=== PATIENT | female | born 1985 | race African-American/Black ===

== ENCOUNTER 2020-09-08 08:39 | Emergency (ER) | payer MEDICAID, SELFPAY ==
--- NOTE | 2020-09-08 08:58 | ED.GENADULT ---
HPI - General Adult General Chief complaint: General Medical Stated complaint: lump in throat Time Seen by Provider: 09/08/20 08:56 Source: patient Mode of arrival: ambulatory Limitations: no limitations History of Present Illness MD complaint: sore throat Onset (ago): day(s) (since Sunday) Location: head Radiation: non-radiation Severity: mild Quality: aching Pain Consistency: constant Relieving factors: none Exacerbating factors: none Associated symptoms: other (sore throat, swollen glands, sinus congestion) Treatments prior to arrival: none Related Data Previous Rx's Medication Instructions Recorded azithromycin 250 mg PO DAILY 4 Days #4 tab 09/08/20 Allergies Allergy/AdvReac Type Severity Reaction Status Date / Time amoxicillin [AMOXICILLIN] Allergy Severe ANAPHYLAXIS, Unverified 07/08/20 17:12 hives Penicillins [PENICILLINS] Allergy Severe ANAPHYLAXIS Unverified 07/08/20 17:12 penicillin V Allergy Unknown hives Verified 11/14/17 00:00 Review of Systems Review of Systems: Constitutional : no Fever, no Chills, no fatigue, no Malaise ENT/Mouth : positive sore throat, positive sinus pressure Eyes: No Discharge Cardiovascular : No Chest Pain, No SOB Respiratory : No Cough, No Sputum Gastrointestinal : No Nausea, No Vomiting, No Diarrhea Genitourinary : No Dysuria, No Urinary Frequency Musculoskeletal : no Myalgia Skin : No rash Neuro : pos Headache PMFSH Past Medical History Attestation statement: The following information was validated with the patient. Medical History Asthma Social History Social History (Updated 09/08/20 @ 08:58 by Vira Gibbs DO) Smoking Status: Current some day smoker Physical Exam Vital Signs: Appearance: Alert. Oriented X3. No acute distress. Eyes: Pupils equal, round and reactive to light. ENT: Pharynx mild erythema/no patches, isolated cervical anterior small LAD, bilateral frontal and maxillary sinus ttp Neck: Normal inspection. Neck supple. CVS: Normal heart rate and rhythm. Pulses normal. Respiratory: No respiratory distress. Breath sounds normal. Abdomen: Soft and nontender. Skin: Skin warm and dry. Normal skin color. Normal skin turgor. Extremities: No lower extremity edema. No calf ttp Neuro: Oriented X 3. No motor deficit. No sensory deficit. Medical Decision Making MDM Narrative Medical decision making narrative: 34 yo female with sore throat and sinus pressure suspect sinusitis - strep test and COVID/flu ordered, not toxic, no resp distress, will start on azithromycin for sinusitis Discharge Plan Discharge Clinical Impression: Sinusitis Qualifiers: Sinusitis location: frontal Chronicity: acute Recurrence: not specified as recurrent Qualified Code(s): J01.10 - Acute frontal sinusitis, unspecified Patient Disposition: Home, Self-Care Instructions: Pharyngitis (ED), Sinusitis (ED) Additional Instructions: return to ED for any worsening symptoms or concerns Prescriptions: New azithromycin 250 mg tablet 250 mg PO DAILY 4 Days Qty: 4 RF: 0 Referrals: John Liu MD [Primary Care Provider] - 2 days (if not better ) Stand Alone Forms: Work/School Release
[2020-09-08 09:01] VITALS: BP 147/101; PULSE 100; RESP 16; TEMP 36.7; O2SAT 96; BMI 23.6
[2020-09-08] MEDS: Azithromycin 500 MG TABLET PO (09:10)
[2020-09-08 10:42] LABS: Influenza A PCR NEGATIVE (Negative); Influenza B PCR NEGATIVE (Negative); Resp Syncy Virus RNA Qual PCR NEGATIVE (Negative); SARS COV2 PCR INHOUSE NEGATIVE (Negative)
== END 2020-09-08 10:09 | disposition home or self-care (01) ==
LOC: HO.ED 09:08
PROVIDERS: Emergency Provider Emergency Medicine; PCP Internal Medicine
DX: J01.10 Acute frontal sinusitis, unspecified (principal); R22.1 Localized swelling, mass and lump, neck; Z20.828 Contact with and (suspected) exposure to other viral communicable diseases
CPT/HCPCS: 0241U; 87071; 87880; 99283

== ENCOUNTER 2021-01-06 13:41 | Outpatient (REF) | payer MEDICAID, SELFPAY ==
--- NOTE | ~2021-01-06 | US_ITS ---
EXAMINATION: US DIAGNOSTIC ULTRASOUND BREAST, LEFT CLINICAL INFORMATION: Follow-up probable benign multiseptated cysts upper outer left breast. Age 35. COMPARISON: Mammography and left breast ultrasound 12/23/2019, left breast ultrasound 06/29/2020.. TECHNIQUE: Ultrasound left breast is targeted to the upper outer quadrant. Grayscale imaging and color Doppler are performed without and with harmonics. FINDINGS: There is an oval cyst 2:00 position 4 cm from nipple with stable internal branching avascular septation. Overall size is approximately 1.1 x 0.4 cm similar to prior exams. There is an adjacent similar appearing multiseptated cyst measuring approximately 1.0 x 0.5 cm. There is no interval solid component or color flow. No new cystic or solid mass. No skin thickening or edema tracking in soft tissue planes. Results are provided to the patient at time of visit by the account development specialist. Management plan is for follow-up targeted left breast ultrasound in one year to conclude long-term surveillance. US/US breast LT limited IMPRESSION: The avascular multiseptated cysts 2:00 position are stable. ASSESSMENT: BI-RADS 3: Probably Benign RECOMMENDATION: Targeted left breast ultrasound in 12 months to conclude long-term surveillance. This patient's information was entered into a reminder system with a target due date for their next breast imaging.
== END 2021-01-06 13:42 | disposition home or self-care (01) ==
LOC: HO.MAMMO 13:41
PROVIDERS: Visit Provider Internal Medicine
DX: N60.02 Solitary cyst of left breast (principal)
CPT/HCPCS: 76642

== ENCOUNTER 2022-01-09 12:41 | Outpatient (REF) | payer MEDICAID, SELFPAY ==
--- NOTE | ~2022-01-09 | US_ITS ---
EXAMINATION: US DIAGNOSTIC ULTRASOUND BREAST, LEFT CLINICAL INFORMATION: Two complex cysts left breast. COMPARISON: 01/06/2021 and studies dating back to 12/23/2019. TECHNIQUE: Ultrasound of the breast is performed with real-time wing scale imaging and color Doppler. FINDINGS: Targeted left breast ultrasound performed. At the 2 o'clock position 4 cm from nipple, there is again noted to be a stable mildly lobular heterogeneous hypoechoic lesion with increased through sound transmission and no internal vascularity measuring approximately 1.1 x 0.4 x 0.9 cm in size. The lesion is wider than it is tall. The second adjacent complex cyst or cluster of cysts at the 2 o'clock position 4 cm from the nipple, appears less bulky and similar in size. It is wider than it is tall without internal vascularity. There is some increased through sound transmission. Other scattered cysts are noted. Results are discussed with the patient at time of visit. US/US breast LT limited IMPRESSION: Essentially stable left breast cysts. ASSESSMENT: BI-RADS 2: Benign. RECOMMENDATION: Clinical followup.
== END 2022-01-09 12:42 | disposition home or self-care (01) ==
LOC: HO.MAMMO 12:41
PROVIDERS: PCP Internal Medicine; Visit Provider Internal Medicine
DX: N60.02 Solitary cyst of left breast (principal)
CPT/HCPCS: 76642

== ENCOUNTER 2022-05-29 13:45 | Outpatient (REF) | payer MEDICAID, SELFPAY ==
[2022-05-30 07:48] LABS: HBS Num1 103.79 mIU/mL (0-7.99); ~Hepatitis B Surface Antibody REACTIVE (Nonreactive)
[2022-05-31 01:37] LABS: Rubella IgG Antibody 3.75 Index; Rubeola IgG (Measles) >300.00 AU/mL
[2022-06-01 00:02] LABS: TS Negative Control Passed; TS Panel A 0; TS Panel B 1; TS Positive Control Passed; TSpotTB Negative (Negative)
== END 2022-05-29 13:46 | disposition home or self-care (01) ==
LOC: HO.LAB 13:45
PROVIDERS: PCP Internal Medicine; Visit Provider Internal Medicine
DX: Z01.84 Encounter for antibody response examination (principal); Z11.1 Encounter for screening for respiratory tuberculosis
CPT/HCPCS: 36415; 86481; 86706; 86735; 86762; 86765; 86787

== ENCOUNTER 2024-04-17 15:49 | Emergency (ER) | payer MEDICAID, SELFPAY ==
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
[2024-04-17 16:36] VITALS: BP 124/78; PULSE 69; RESP 16; TEMP 36.6; O2SAT 100; BMI 25.5
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
[2024-04-17 20:09] VITALS: BP 138/89; PULSE 75; RESP 16; TEMP 36.5; O2SAT 98
[2024-04-17 21:07] VITALS: BP 138/89; PULSE 75; RESP 16; TEMP 36.5; O2SAT 98
== END 2024-04-17 21:08 | disposition home or self-care (01) ==
PROVIDERS: Emergency Provider Emergency Medicine; PCP Internal Medicine
DX: Z04.1 Encounter for examination and observation following transport accident (principal); M25.512 Pain in left shoulder; M25.522 Pain in left elbow; M62.838 Other muscle spasm
CPT/HCPCS: 73030; 73080; 99283

== ENCOUNTER 2024-05-27 20:23 | Inpatient (IN) | payer MEDICAID, OTHER, SELFPAY ==
--- NOTE | 2024-05-27 | ECG_ITS ---
Test Reason : OVERDOSE Blood Pressure : / mmHG Vent. Rate : 058 BPM Atrial Rate : 058 BPM P-R Int : 152 ms QRS Dur : 076 ms QT Int : 456 ms P-R-T Axes : 056 053 034 degrees QTc Int : 447 ms Sinus bradycardia Otherwise normal ECG No previous ECGs available Referred By: Emanuel Rankin Electronically Signed By:NIRANJAN HARDING MD
[2024-05-27 20:41] VITALS: BP 157/84; BP 174/107; PULSE 72; PULSE 80; RESP 18; TEMP -17.7; TEMP 0; O2SAT 100; O2SAT 94; BMI 46.7
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
[2024-05-27] MEDS: 0.9 % Sodium Chloride 1,000 ML 999 ML IV (21:15)
[2024-05-27] MEDS: Activated charcoaL 50 GM/240 ML ORAL.SUSP PO (21:15)
[2024-05-27] MEDS: ondansetron HCL 4 MG/2 ML VIAL IVPUSH (21:15)
[2024-05-27 21:17] LABS: MANUAL DIFF FLAG NO
[2024-05-27 21:21] LABS: Basophils Absolute Auto 0.1 X10*3/uL (0.0-0.2); Basophils Percent Auto 0.5 % (0-2); Eosinophils Absolute Auto 0.1 X10*3/uL (0.0-0.4); Eosinophils Percent Auto 0.5 % (0-4); Hematocrit 37.7 % (37.0-47.0); Hemoglobin 13.4 g/dl (12.0-16.0); Imm Gran Abs Auto 0.03 X10*3/uL (0.00-0.03); Imm Gran Pct Auto 0.2 % (0.0-0.4); Lymphocytes Percent Auto 16.1 % (20-40); Mean Corpuscular HGB Conc 35.5 g/dl (31.0-35.0); Mean Corpuscular Hemoglobin 33.3 pg (27.0-33.0); Mean Corpuscular Volume 93.8 fL (80.0-98.0); Mean Platelet Volume 9.3 fL (9.4-12.3); Monocytes Absolute Auto 0.8 X10*3/uL (0.1-1.2); Monocytes Percent Auto 6.2 % (2-11); Neutrophils Absolute Auto 9.5 x10*3/uL (2.0-8.3); Neutrophils Percent Auto 76.5 % (45-73); Platelet Count 304 X10*3/uL (160-400); Red Blood Count 4.02 X10*6/uL (4.20-5.50); Red Cell Distribution Width 12.8 % (11.0-16.0); UPreg QC Valid YES; Urine Pregnancy NEGATIVE (NEGATIVE); White Blood Count 12.4 X10*3/uL (4.8-10.8)
[2024-05-27 21:29] LABS: Amphetamine Screen Urine Not Detected (Not Detect); Barbiturates, Urine Not Detected (Not Detect); Benzodiazepines Screen Urine Not Detected (Not Detect); Buprenorphine Scr Not Detected (Not Detect); Cannabinoid Screen Urine POSITIVE (Not Detect); Cocaine Screen Urine Not Detected (Not Detect); Fentanyl, urine Not Detected (Not Detect); Methadone Screen, Urine Not Detected (Not Detect); Opiate Screen Urine Not Detected (Not Detect); Oxycodone Screen Urine Not Detected (Not Detect); Phencyclidine Screen Urine Not Detected (Not Detect)
[2024-05-27 21:34] LABS: Acetaminophen LAB < 3 mcg/mL (<30); Salicylate < 5.0 mg/dL (15-30)
[2024-05-27 21:39] LABS: Alanine Aminotransferase 46 U/L (0-31); Albumin Level 4.4 g/dL (3.5-5.0); Alkaline Phosphatase 74 U/L (39-117); Anion Gap 18 (12-20); Aspartate Amino Transferase 38 U/L (5-31); Bilirubin Total 0.4 mg/dL (0.0-1.0); Calcium 9.4 mg/dL (8.4-10.2); Carbon Dioxide 20 mmol/L (22-29); Chloride 107 mmol/L (96-108); Estimated Glomerular Filt Rate > 60; Ethanol 59 mg/dL; Glucose Random 82 mg/dL (60-115); Potassium 3.2 mmol/L (3.3-5.1); Sodium 142 mmol/L (135-145); Total Protein 7.3 g/dL (6.5-8.0)
--- NOTE | 2024-05-27 21:39 | PC.NURSE ---
sawmill manager calls poison control to report the patient's OD on citalopram. Based on initial reports of the patient ingesting an unknown amount the recommendations were initially as follows EKG q 2 hours x3, once 3 consecutive EKGs are unremarkable EKGs can be obtained q 4-6 hours Regulate the patient's potassium to 4 and magnesium to 2 watch for serotonin syndrome for which benzos can be given avoid fentayl administration While on the phone with poison control MD Puri came and reported the pt only 5 of her citalopram pills and poison control was not needed. MD Puri and poison control spoke about the pt's condition, presentation and further recommendations. Please see MD note for details pertaining to his conversation with poison control and the recommendations he received.
[2024-05-27 21:48] LABS: Blood Urea Nitrogen 8 mg/dL (9-16)
--- NOTE | 2024-05-27 21:58 | PC.NURSE ---
This RN counted 65 pills remaining in Citalopram pill bottle.
[2024-05-27 22:15] LABS: Magnesium 2.1 mg/dL (1.6-2.6)
[2024-05-27] MEDS: Potassium Chloride ER 20 MEQ TAB.ER.PRT PO (22:56)
[2024-05-27] MEDS: Potassium Chloride/H20 10 MEQ/100 ML PIGGYBACK 100 MEQ IV (22:56)
[2024-05-27 23:43] VITALS: BP 144/82; PULSE 62; RESP 14; TEMP 36.7; O2SAT 98
--- NOTE | 2024-05-28 00:03 | ECG_ITS ---
Test Reason : od Blood Pressure : / mmHG Vent. Rate : 066 BPM Atrial Rate : 066 BPM P-R Int : 158 ms QRS Dur : 064 ms QT Int : 442 ms P-R-T Axes : 056 054 028 degrees QTc Int : 463 ms Normal sinus rhythm Septal infarct , age undetermined Abnormal ECG When compared with ECG of 27-MAY-2024 20:56, No significant change was found Referred By: Emanuel Rankin Electronically Signed By:NIRANJAN HARDING MD
--- NOTE | 2024-05-28 01:02 | PC.NURSE ---
Report to SETH Mart
--- NOTE | 2024-05-28 01:07 | PC.NURSE ---
Pt relocated to [facility], she was wheeled over with patient observer and ED RN. She is awake, alert, oriented, tearful and expressing concerns about her 16 yo son. The pt denies any needs at this time; food, beverage, socks and a warm blanket offered but all denied. The pt's belongings were found in an undocumented locker without patient label on it. This RN and patient confirmed that the belongings belonged to her and the items were labeled and placed in locker #4. Pt's room lights were turned off and door closed per request
--- NOTE | 2024-05-28 02:12 | PC.NURSE ---
RN received follow up call from poison control looking for information regarding the pt's last/most recent EKG and to assess her symptoms. Per Poison control, the goal is to observe the pt for 8 hours and to ensure the qtc remains <500. Plan is for poison control to follow up before sign out at 0700 to officially clear the patient
--- NOTE | 2024-05-28 06:34 | PC.NURSE ---
RN received a return/follow up call from Poison control. Per Rosetta the pt can be cleared at this time and no longer requires any follow up or recommendations.
[2024-05-28 06:35] VITALS: BP 114/80; PULSE 65; TEMP 36.3; O2SAT 97
--- NOTE | 2024-05-28 07:05 | PC.NURSE ---
Assumed care of patient at 0645. Patient is currently resting quietly in their bed. No signs of distress observed, breathing is even and unlabored.
[2024-05-28] MEDS: LORazepam 1 MG TABLET PO (12:36)
[2024-05-28 20:44] VITALS: BP 119/71; PULSE 73; RESP 16; TEMP 36.6; O2SAT 99
[2024-05-29 09:35] LABS: Appearance Urine Cloudy; Color Urine Yellow; Glucose Urine UA Negative (Negative); Leukocyte Esterase Urine Small (1+) (Negative); Nitrite Urine Negative (Negative); PH 6.5 (5.0-9.0); UMIC TRIGGER UACC YES; Urine Blood Large (3+) (Negative); Urine Ketones Negative (Negative); Urine Protein Negative (Neg-Trace)
[2024-05-29 09:53] LABS: Bacteria Urine 4+ (None Seen); Hyaline Casts Urine 0-2 /LPF (0-2); RBC Urine 0-2 /HPF (0-2); Trichomonas Urine Present; UACC Culture Trigger YES
--- NOTE | 2024-05-29 12:45 | PC.NURSE ---
Pt reports she only takes the citalopram 20mg daily, med rec was done yesterday by RN
[2024-05-29] MEDS: Acetaminophen 325 MG TABLET 650 MG PO (13:27)
--- NOTE | 2024-05-29 13:28 | PC.NURSE ---
lab work obtained/sent to lab. pt requesting tylenol for discomfort in left shoulder. prn medication utilized. effectiveness pending. pt provided w/ hot tea upon request. pt continues to sit/rest comfortably w/ the lights dimmed in no apparent distress. no sob/wob noted. respirations even/unlabored.
[2024-05-29 13:41] LABS: Potassium 4.1 mmol/L (3.3-5.1)
[2024-05-29 14:05] VITALS: PULSE 76; RESP 20; TEMP 36.3; O2SAT 96
[2024-05-29 16:00] VITALS: BP 118/69; PULSE 75; RESP 20; TEMP 36.4; O2SAT 97
[2024-05-29] MEDS: Nicotine Polacrilex 2 MG GUM 4 MG BUCCAL (18:04)
[2024-05-29] MEDS: LORazepam 1 MG TABLET PO (18:04)
[2024-05-29] MEDS: hydrOXYzine HCL 25 MG TABLET PO (18:04)
[2024-05-29] MEDS: Nicotine 21 MG PATCH.TD24 TRANSDERMA (18:04)
--- NOTE | 2024-05-29 18:14 | PC.ADMIT ---
Gerald is a 38 year old female was admitted to [facility] from the POD with diagnosis of depression and SI. She attempted suicide by intentional OD on her citalopram along with alcohol on 05/27/24. Per crisis report her mother 2 months ago and since then her depression has significantly worsened. She had 1 other suicide attempt when she was younger but details not shared. Pt angry that her boyfriend/boyfriend's? daughter called 911 after her OD as she wanted to be with my mom! Also while in the pod stated that if she went home she would attempt suicide again in hopes of completion. Pt has Bipolar disorder, PTSD, MDD, anxiety, and cannabis?use disorder. She reports she has a medical marijuana card and smokes daily to ease her anxiety and BPD. She does not want a therapist? 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 Skin and safety check unremarkable. Pt declined to answer? admission questions but later on agreed to sign release of information forms. States she?doesn not want her boyfriend Sumeet Ray knowing anything about her while? here on M5.? She reports her 17 year old son is staying with a friend right now and her?older son is away at college, I have nobody! ? Declined to sign a CV with Jennifer Moya and is here on a 12 B. When asked if she would come to staff if she felt like?hurting herself, she adamantly stated, No . Placed on 5 min checks for safety . Presently denies SI/HI/AVH, rates depression and anxiety high and was accepting of? Ativan and Atarax.??
--- NOTE | 2024-05-30 03:37 | PC.NURSE ---
This automotive service writer attempted to assess this patient at approximately 2100. The patient quietly and politely told this automotive service writer I won't be answering any questions, thank you, effectively ending the interaction. This automotive service writer explained to the patient that she has PRN medications available, and what symptoms those medications treat. The patient politely said Thank you, I'll tell you if I need anything. Good night. Very polite and pleasant, but refuses to participate in any way in her care.
[2024-05-30 08:00] VITALS: BP 106/67; PULSE 58; RESP 16; TEMP 36.7; O2SAT 100
[2024-05-30] MEDS: Nicotine 21 MG PATCH.TD24 TRANSDERMA (08:48)
[2024-05-30] MEDS: hydrOXYzine HCL 25 MG TABLET PO (08:49)
[2024-05-30] MEDS: Nicotine Polacrilex 2 MG GUM 4 MG BUCCAL ×2 (08:49→20:49)
[2024-05-30] MEDS: Acetaminophen 325 MG TABLET 650 MG PO (08:51)
[2024-05-30 09:10] LABS: Cholesterol 171 mg/dL (<200); HDL Cholesterol 45 mg/dL (>40); LDL Cholesterol Calculated 107 mg/dL (<100); Triglycerides 95 mg/dL (<150)
[2024-05-30 09:13] LABS: Estimated Average Glucose 85 mg/dL; Hemoglobin A1c % 4.6 % (<6.0)
[2024-05-30 09:36] LABS: Folate 7.7 ng/mL (> or = 4.0); Vitamin B12 510 pg/mL (200-900)
[2024-05-30] MEDS: NaPROXEN 500 MG TABLET PO ×2 (10:01→20:49)
[2024-05-30 10:09] LABS: Free T4 (Free Thyroxine) 1.04 ng/dL (0.71-1.85); Thyroid Stimulating Hormone 1.05 uIU/mL (0.32-4.0)
[2024-05-30] MEDS: LORazepam 1 MG TABLET PO ×2 (13:41→20:47)
[2024-05-30] MEDS: traMADoL HCL 50 MG TABLET 25 MG PO (14:55)
[2024-05-30] MEDS: Milk of Magnesia 30 ML ORAL.SUSP PO (14:59)
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
[2024-05-30] MEDS: traZODone HCL 50 MG TABLET PO (20:47)
[2024-05-30] MEDS: OLANZapine 5 MG TABLET PO (20:47)
[2024-05-31 07:57] VITALS: BP 124/67; PULSE 54; RESP 16; TEMP 36.6; O2SAT 97
[2024-05-31] MEDS: Sertraline HCL 25 MG TABLET PO (09:06)
[2024-05-31] MEDS: hydrOXYzine HCL 25 MG TABLET PO (09:06)
[2024-05-31] MEDS: NaPROXEN 500 MG TABLET PO ×2 (09:12→22:50)
[2024-05-31] MEDS: Nicotine 21 MG PATCH.TD24 TRANSDERMA (09:51)
[2024-05-31] MEDS: Nicotine Polacrilex 2 MG GUM 4 MG BUCCAL ×3 (09:52→19:27)
--- NOTE | 2024-05-31 10:17 | HO.PSYCHPN ---
Subjective Subjective Date of Service: 05/31/24 Reason For Visit: Depression, SI Interim History: Patient seen. Tolerating the start of medications well. Denies side effects. Seen in the milieu. Calm. Cooperative. Visible. Asks that Naprosen be scheduled. Denies SI/HI/AVH. Review of Systems Review of Systems Arthritis, Carpal Tunnel Yes all other systems are reviewed and are negative Mental Status Exam Mental Status Exam Patient Appearance: Fatigued Patient Orientation: Person, Place, Time and Situation Level of Consciousness: Alert Patient Behavior: Talkative, Good Eye Contact and Crying Mood Description: Depressed Affect Description: Flat Patient Cognition Impaired: No Ability to Follow Directions: Good Speech Pattern: Spontaneous Speech Memory Description: Intact Diagnostics Vital Signs (24Hr): Vital Signs - 24 hr 05/31/24 07:57 Temperature 98 F Pulse Rate 54 Respiratory Rate 16 Blood Pressure 124/67 Pulse Oximetry 97 Oxygen Delivery Method Room Air BMI result Body Mass Index 46.7 Labs 05/27/24 21:11 05/29/24 13:19 Labs: Laboratory Results - last 48 hr 05/29/24 05/30/24 13:19 08:33 Potassium 4.1 D Estimat Average Glucose 85 Hemoglobin A1c % 4.6 Magnesium 2.0 Triglycerides 95 Cholesterol 171 LDL Cholesterol, Calc 107 H HDL Cholesterol 45 Vitamin B12 510 Folate 7.7 TSH 1.05 Free T4 1.04 Medications Medications Current Medications Acetaminophen (Acetaminophen 325 Mg Tablet) 650 mg PO Q6H PRN PRN Reason: Headache/Pain Mild Scale (1-3) Last Admin: 05/30/24 08:51 Dose: 650 mg Al Hydroxide/Mg Hydroxide (Magnesium Hydrox/Alum Hydrox 30 Ml Oral.Susp) 30 ml PO Q6H PRN PRN Reason: Heartburn/Nausea Hydroxyzine HCl (Hydroxyzine Hcl 25 Mg Tablet) 25 mg PO Q6H PRN PRN Reason: Anxiety Last Admin: 05/31/24 09:06 Dose: 25 mg Lorazepam (Lorazepam 1 Mg Tablet) 1 mg PO Q4H PRN PRN Reason: Anxiety Last Admin: 05/30/24 20:47 Dose: 1 mg Magnesium Hydroxide (Milk Of Magnesia 30 Ml Oral.Susp) 30 ml PO DAILY PRN PRN Reason: Constipation Last Admin: 05/30/24 14:59 Dose: 30 ml Naproxen (Naproxen 500 Mg Tablet) 500 mg PO Q12H PRN PRN Reason: arthritis/carpal tunnel pain Last Admin: 05/31/24 09:12 Dose: 500 mg Nicotine (Nicotine 21 Mg Patch.Td24) 21 mg TRANSDERMA DAILY PRN PRN Reason: nicotine cravings Last Admin: 05/31/24 09:51 Dose: 21 mg Nicotine Polacrilex (Nicotine Polacrilex 2 Mg Gum) 4 mg BUCCAL Q2H PRN PRN Reason: Nicotine Cravings Last Admin: 05/31/24 09:52 Dose: 4 mg Olanzapine (Olanzapine 5 Mg Tablet) 5 mg PO Q4H PRN PRN Reason: agitation Last Admin: 05/30/24 20:47 Dose: 5 mg Sertraline HCl (Sertraline Hcl 25 Mg Tablet) 25 mg PO DAILY NADIRA Last Admin: 05/31/24 09:06 Dose: 25 mg Tramadol HCl (Tramadol Hcl 50 Mg Tablet) 25 mg PO Q6H PRN PRN Reason: severe pain Last Admin: 05/30/24 14:55 Dose: 25 mg Trazodone HCl (Trazodone Hcl 50 Mg Tablet) 50 mg PO BEDTIME MRX1 PRN PRN Reason: Insomnia Last Admin: 05/30/24 20:47 Dose: 50 mg Allergies Allergies Allergy/AdvReac Type Severity Reaction Status Date / Time amoxicillin [AMOXICILLIN] Allergy Severe ANAPHYLAXIS, Verified 05/27/24 20:47 hives Penicillins [PENICILLINS] Allergy Severe ANAPHYLAXIS Verified 05/27/24 20:47 penicillin V Allergy Unknown hives Verified 05/27/24 20:47 Assessment & Plan Assessment & Plan (1) Bipolar II disorder: Status: Acute Code(s): F31.81 - Bipolar II disorder (2) PTSD (post-traumatic stress disorder): Status: Acute Code(s): F43.10 - Post-traumatic stress disorder, unspecified Plan Bipolar II Disorder, PTSD. Plan: Admit, Section 12B, 15 minute checks DC Citalopram Sertraline 25 mg a.m. Declined a mood stabilizer. Reports she uses cannabis for this. Collateral contacts Encourage full milieu Diagnostics as needed. 05/31: continue current management and treatment plan. Reason for continued inpatient stay Substantial Risk for: harm to self, inability to function and rapid decompensation Time Spent With Patient Time: Total time managing care of this patient today ____ minutes.
[2024-05-31] MEDS: Acetaminophen 325 MG TABLET 650 MG PO (13:11)
[2024-05-31] MEDS: LORazepam 1 MG TABLET PO ×2 (19:27→23:32)
[2024-05-31 20:00] VITALS: BP 137/84; PULSE 67; RESP 17; TEMP 36.2; O2SAT 98
[2024-05-31] MEDS: traMADoL HCL 50 MG TABLET 25 MG PO (22:49)
[2024-05-31] MEDS: traZODone HCL 50 MG TABLET PO (22:50)
[2024-06-01 08:30] VITALS: BP 108/58; PULSE 59; RESP 16; TEMP 37.2; O2SAT 100
[2024-06-01] MEDS: hydrOXYzine HCL 25 MG TABLET PO ×2 (09:15→23:10)
[2024-06-01] MEDS: NaPROXEN 500 MG TABLET PO ×2 (09:15→21:41)
[2024-06-01] MEDS: Nicotine 21 MG PATCH.TD24 TRANSDERMA (09:15)
[2024-06-01] MEDS: Sertraline HCL 25 MG TABLET PO (09:15)
--- NOTE | 2024-06-01 10:27 | HO.PSYCHPN ---
Subjective Subjective Date of Service: 06/01/24 Reason For Visit: Depression, SI Interim History: Patient seen. Tolerating medications well. Denies side effects. Seen in the milieu. Calm. Cooperative. Visible. Denies SI/HI/AVH. Review of Systems Review of Systems Arthritis, Carpal Tunnel Yes all other systems are reviewed and are negative Mental Status Exam Mental Status Exam Patient Appearance: Fatigued Patient Orientation: Person, Place, Time and Situation Level of Consciousness: Alert Patient Behavior: Talkative, Good Eye Contact and Crying Mood Description: Depressed Affect Description: Flat Patient Cognition Impaired: No Ability to Follow Directions: Good Speech Pattern: Spontaneous Speech Memory Description: Intact Diagnostics Vital Signs (24Hr): Vital Signs - 24 hr 05/31/24 20:00 06/01/24 08:30 Temperature 97.1 F 98.9 F Pulse Rate 67 59 Respiratory Rate 17 16 Blood Pressure 137/84 108/58 L Pulse Oximetry 98 100 Oxygen Delivery Method Room Air Room Air BMI result Body Mass Index 46.7 Labs 05/27/24 21:11 05/29/24 13:19 Medications Medications Current Medications Acetaminophen (Acetaminophen 325 Mg Tablet) 650 mg PO Q6H PRN PRN Reason: Headache/Pain Mild Scale (1-3) Last Admin: 05/31/24 13:11 Dose: 650 mg Al Hydroxide/Mg Hydroxide (Magnesium Hydrox/Alum Hydrox 30 Ml Oral.Susp) 30 ml PO Q6H PRN PRN Reason: Heartburn/Nausea Hydroxyzine HCl (Hydroxyzine Hcl 25 Mg Tablet) 25 mg PO Q6H PRN PRN Reason: Anxiety Last Admin: 06/01/24 09:15 Dose: 25 mg Lorazepam (Lorazepam 1 Mg Tablet) 1 mg PO Q4H PRN PRN Reason: Anxiety Last Admin: 05/31/24 23:32 Dose: 1 mg Magnesium Hydroxide (Milk Of Magnesia 30 Ml Oral.Susp) 30 ml PO DAILY PRN PRN Reason: Constipation Last Admin: 05/30/24 14:59 Dose: 30 ml Naproxen (Naproxen 500 Mg Tablet) 500 mg PO Q12H NADIRA Last Admin: 06/01/24 09:15 Dose: 500 mg Nicotine (Nicotine 21 Mg Patch.Td24) 21 mg TRANSDERMA DAILY PRN PRN Reason: nicotine cravings Last Admin: 06/01/24 09:15 Dose: 21 mg Nicotine Polacrilex (Nicotine Polacrilex 2 Mg Gum) 4 mg BUCCAL Q2H PRN PRN Reason: Nicotine Cravings Last Admin: 05/31/24 19:27 Dose: 4 mg Olanzapine (Olanzapine 5 Mg Tablet) 5 mg PO Q4H PRN PRN Reason: agitation Last Admin: 05/30/24 20:47 Dose: 5 mg Sertraline HCl (Sertraline Hcl 25 Mg Tablet) 25 mg PO DAILY NADIRA Last Admin: 06/01/24 09:15 Dose: 25 mg Tramadol HCl (Tramadol Hcl 50 Mg Tablet) 25 mg PO Q6H PRN PRN Reason: severe pain Last Admin: 05/31/24 22:49 Dose: 25 mg Trazodone HCl (Trazodone Hcl 50 Mg Tablet) 50 mg PO BEDTIME MRX1 PRN PRN Reason: Insomnia Last Admin: 05/31/24 22:50 Dose: 50 mg Allergies Allergies Allergy/AdvReac Type Severity Reaction Status Date / Time amoxicillin [AMOXICILLIN] Allergy Severe ANAPHYLAXIS, Verified 05/27/24 20:47 hives Penicillins [PENICILLINS] Allergy Severe ANAPHYLAXIS Verified 05/27/24 20:47 penicillin V Allergy Unknown hives Verified 05/27/24 20:47 Assessment & Plan Assessment & Plan (1) Bipolar II disorder: Status: Acute Code(s): F31.81 - Bipolar II disorder (2) PTSD (post-traumatic stress disorder): Status: Acute Code(s): F43.10 - Post-traumatic stress disorder, unspecified Plan Bipolar II Disorder, PTSD. Plan: Admit, Section 12B, 15 minute checks DC Citalopram Sertraline 25 mg a.m. Declined a mood stabilizer. Reports she uses cannabis for this. Collateral contacts Encourage full milieu Diagnostics as needed. 05/31: continue current management and treatment plan. 06/01: continue current management and treatment plan. Reason for continued inpatient stay Substantial Risk for: harm to self and inability to function Time Spent With Patient Time: Total time managing care of this patient today ____ minutes.
[2024-06-01] MEDS: Acetaminophen 325 MG TABLET 650 MG PO (13:49)
[2024-06-01] MEDS: LORazepam 1 MG TABLET PO ×2 (13:49→21:47)
[2024-06-01 20:00] VITALS: BP 132/87; PULSE 72; RESP 15; TEMP 36.4; O2SAT 100
[2024-06-01] MEDS: traZODone HCL 50 MG TABLET PO ×2 (21:41→23:10)
[2024-06-01] MEDS: traMADoL HCL 50 MG TABLET 25 MG PO (21:42)
[2024-06-01] MEDS: Nicotine Polacrilex 2 MG GUM 4 MG BUCCAL (21:47)
[2024-06-02 07:59] VITALS: BP 110/61; PULSE 57; RESP 16; TEMP 36.7; O2SAT 99
[2024-06-02] MEDS: LORazepam 1 MG TABLET PO ×2 (08:50→22:06)
[2024-06-02] MEDS: hydrOXYzine HCL 25 MG TABLET PO ×2 (08:50→22:02)
[2024-06-02] MEDS: Nicotine 21 MG PATCH.TD24 TRANSDERMA (08:50)
[2024-06-02] MEDS: NaPROXEN 500 MG TABLET PO ×2 (09:04→22:02)
[2024-06-02] MEDS: Sertraline HCL 25 MG TABLET PO (09:05)
--- NOTE | 2024-06-02 14:57 | HO.PSYCHPN ---
Subjective Subjective Date of Service: 06/02/24 Reason For Visit: Depression, SI Subjective Notes: Section 12B Interim History: Reviewed with Dr. Bello. 12b up on 06/03/24. Patient reports feeling okay today; pt stated, I'm not anxious or depressed. I talked to my sister and brother a lot. They made me more hopeful. I plan on moving to [place] to live with my oldest son . Pt denies SI/HI/VH/AH. Pt reports she is not interested in referrals since I'm leaving the area and will find providers in [place] . Medication Compliance: Yes Side effects from medications: No Attending Groups: No Review of Systems Constitutional: Reports as per HPI Eyes: Reports as per HPI Reports as per HPI Cardiovascular: Reports as per HPI Respiratory: Reports as per HPI Gastrointestinal: Reports as per HPI Genitourinary: Reports as per HPI Musculoskeletal: Reports as per HPI Skin/Breast: Reports as per HPI Reports as per HPI Psychiatric: Reports as per HPI Endocrine: Reports as per HPI Hematologic/Lymphatic: Reports as per HPI Allergic/Immunologic: Reports as per HPI Mental Status Exam Mental Status Exam Patient Appearance: Appropriate Patient Orientation: Person, Place, Time and Situation Level of Consciousness: Awake and Appropriate Patient Behavior: Appropriate and Cooperative Mood Description: Calm Ability to Follow Directions: Good Speech Pattern: Clear and Appropriate Memory Description: Intact Thought Process: Linear Thought Content: positive for Logical Judgement: Fair Diagnostics Vital Signs (24Hr): Vital Signs - 24 hr 06/01/24 20:00 06/02/24 07:59 Temperature 97.5 F 98.1 F Pulse Rate 72 57 Respiratory Rate 15 16 Blood Pressure 132/87 110/61 Pulse Oximetry 100 99 Oxygen Delivery Method Room Air BMI result Body Mass Index 46.7 Labs 05/27/24 21:11 05/29/24 13:19 Medications Medications Current Medications Acetaminophen (Acetaminophen 325 Mg Tablet) 650 mg PO Q6H PRN PRN Reason: Headache/Pain Mild Scale (1-3) Last Admin: 06/01/24 13:49 Dose: 650 mg Al Hydroxide/Mg Hydroxide (Magnesium Hydrox/Alum Hydrox 30 Ml Oral.Susp) 30 ml PO Q6H PRN PRN Reason: Heartburn/Nausea Hydroxyzine HCl (Hydroxyzine Hcl 25 Mg Tablet) 25 mg PO Q6H PRN PRN Reason: Anxiety Last Admin: 06/02/24 08:50 Dose: 25 mg Lorazepam (Lorazepam 1 Mg Tablet) 1 mg PO Q4H PRN PRN Reason: Anxiety Last Admin: 06/02/24 08:50 Dose: 1 mg Magnesium Hydroxide (Milk Of Magnesia 30 Ml Oral.Susp) 30 ml PO DAILY PRN PRN Reason: Constipation Last Admin: 05/30/24 14:59 Dose: 30 ml Naproxen (Naproxen 500 Mg Tablet) 500 mg PO BID [facility] Last Admin: 06/02/24 09:04 Dose: 500 mg Nicotine (Nicotine 21 Mg Patch.Td24) 21 mg TRANSDERMA DAILY PRN PRN Reason: nicotine cravings Last Admin: 06/02/24 08:50 Dose: 21 mg Nicotine Polacrilex (Nicotine Polacrilex 2 Mg Gum) 4 mg BUCCAL Q2H PRN PRN Reason: Nicotine Cravings Last Admin: 06/01/24 21:47 Dose: 4 mg Olanzapine (Olanzapine 5 Mg Tablet) 5 mg PO Q4H PRN PRN Reason: agitation Last Admin: 05/30/24 20:47 Dose: 5 mg Sertraline HCl (Sertraline Hcl 25 Mg Tablet) 25 mg PO DAILY [facility] Last Admin: 06/02/24 09:05 Dose: 25 mg Tramadol HCl (Tramadol Hcl 50 Mg Tablet) 25 mg PO Q6H PRN PRN Reason: severe pain Last Admin: 06/01/24 21:42 Dose: 25 mg Trazodone HCl (Trazodone Hcl 50 Mg Tablet) 50 mg PO BEDTIME MRX1 PRN PRN Reason: Insomnia Last Admin: 06/01/24 23:10 Dose: 50 mg Allergies Allergies Allergy/AdvReac Type Severity Reaction Status Date / Time amoxicillin [AMOXICILLIN] Allergy Severe ANAPHYLAXIS, Verified 05/27/24 20:47 hives Penicillins [PENICILLINS] Allergy Severe ANAPHYLAXIS Verified 05/27/24 20:47 penicillin V Allergy Unknown hives Verified 05/27/24 20:47 Assessment & Plan Assessment & Plan (1) Bipolar II disorder: Status: Acute Code(s): F31.81 - Bipolar II disorder (2) PTSD (post-traumatic stress disorder): Status: Acute Code(s): F43.10 - Post-traumatic stress disorder, unspecified Plan Bipolar II Disorder, PTSD. Plan: Admit, Section 12B, 15 minute checks DC Citalopram Sertraline 25 mg a.m. Declined a mood stabilizer. Reports she uses cannabis for this. Collateral contacts Encourage full milieu Diagnostics as needed. 05/31: continue current management and treatment plan. 06/01: continue current management and treatment plan. 06/02: 12b up on 06/03/24. Patient reports feeling okay today; pt stated, I'm not anxious or depressed. I talked to my sister and brother a lot. They made me more hopeful. I plan on moving to [place] to live with my oldest son . Pt denies SI/HI/VH/AH. Pt reports she is not interested in referrals since I'm leaving the area and will find providers in [place] . Patient educated on: diagnosis, medication risk/benefits and therapeutic strategies Reason for continued inpatient stay Substantial Risk for: med/psych decompensation Time Spent With Patient Time: Total time managing care of this patient today _20___ minutes.
[2024-06-02] MEDS: Nicotine Polacrilex 2 MG GUM 4 MG BUCCAL ×2 (16:18→20:34)
[2024-06-02 20:00] VITALS: BP 143/78; PULSE 62; RESP 16; TEMP 36.4; O2SAT 100
[2024-06-02] MEDS: traMADoL HCL 50 MG TABLET 25 MG PO (22:00)
[2024-06-02] MEDS: traZODone HCL 50 MG TABLET PO ×2 (22:00→23:05)
[2024-06-03] MEDS: Sertraline HCL 25 MG TABLET PO (09:36)
[2024-06-03] MEDS: Nicotine Polacrilex 2 MG GUM 4 MG BUCCAL (09:36)
[2024-06-03] MEDS: LORazepam 1 MG TABLET PO (09:36)
[2024-06-03] MEDS: hydrOXYzine HCL 25 MG TABLET PO (09:36)
[2024-06-03] MEDS: NaPROXEN 500 MG TABLET PO (09:36)
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
[2024-06-03 09:55] VITALS: BP 119/58; PULSE 68; RESP 18; TEMP 36.8; O2SAT 100
== END 2024-06-03 11:40 | disposition home or self-care (01) | DRG 885 ==
LOC: HO.ED 05-28 01:03 → HO.PM5 05-29 12:42
PROVIDERS: Admitting Provider Clinical Nurse Specialist Psychiatric/Mental Health, Adult; Emergency Provider Internal Medicine; PCP Internal Medicine; Visit Provider Clinical Nurse Specialist Psychiatric/Mental Health, Adult
DX: F31.81 Bipolar II disorder (principal); T43.222A Poisoning by selective serotonin reuptake inhibitors, intentional self-harm, initial encounter; J45.909 Unspecified asthma, uncomplicated; F17.210 Nicotine dependence, cigarettes, uncomplicated; F43.10 Post-traumatic stress disorder, unspecified; Z71.6 Tobacco abuse counseling; Y90.2 Blood alcohol level of 40-59 mg/100 ml; Z91.51 Personal history of suicidal behavior; Z62.820 Parent-biological child conflict; Z63.4 Disappearance and death of family member; Z79.899 Other long term (current) drug therapy
CPT/HCPCS: 36415; 80053; 80061; 80143; 80179; 80307; 81001; 81025; 82607; 82746; 83036; 83735; 84132; 84439; 84443; 85025; 87086; 93005; 99285; J2405; J3480; S9485

== ENCOUNTER → 2024-05-27 20:56 | Outpatient (BNV) | payer MEDICAID, SELFPAY | PROVIDERS: Emergency Provider Internal Medicine; PCP Internal Medicine; Visit Provider Internal Medicine Cardiovascular Disease | DX: R00.1 Bradycardia, unspecified (principal); T50.901A Poisoning by unspecified drugs, medicaments and biological substances, accidental (unintentional), initial encounter | CPT/HCPCS: 93010 ==

== ENCOUNTER → 2024-05-28 00:03 | Outpatient (BNV) | payer MEDICAID, SELFPAY | PROVIDERS: Emergency Provider Internal Medicine; PCP Internal Medicine; Visit Provider Internal Medicine Cardiovascular Disease | DX: R94.31 Abnormal electrocardiogram [ECG] [EKG] (principal); T50.901A Poisoning by unspecified drugs, medicaments and biological substances, accidental (unintentional), initial encounter | CPT/HCPCS: 93010 ==

== ENCOUNTER → 2024-05-29 12:24 | Outpatient (BNV) | payer OTHER, SELFPAY | PROVIDERS: Admitting Provider Clinical Nurse Specialist Psychiatric/Mental Health, Adult; Emergency Provider Internal Medicine; PCP Internal Medicine; Visit Provider Psychiatry & Neurology Psychiatry | DX: F31.81 Bipolar II disorder (principal); F43.11 Post-traumatic stress disorder, acute | CPT/HCPCS: 90792; 99231; 99238 ==

== ENCOUNTER 2024-07-29 09:38 | Emergency (ER) | payer MEDICAID, SELFPAY ==
[2024-07-29 09:52] VITALS: BP 129/90; PULSE 68; RESP 16; TEMP 36.7; O2SAT 99; BMI 24.6
[2024-07-29 11:13] LABS: IDNOW Serial# 08D9AD1C; Strep A Nucleic Acid Negative (Negative)
--- NOTE | 2024-07-29 11:29 | ED_ITS ---
HPI - General Adult General Chief complaint: Upper Respiratory Symptoms Stated complaint: Lump L side of neck Time Seen by Provider: 07/29/24 11:27 Source: patient Mode of arrival: ambulatory Limitations: no limitations History of Present Illness ED Provider: Roxane Nicholson PA-C HPI narrative: Patient is a 38 year old assigned female at with a history of bipolar disorder and PTSD presenting to the emergency department today with left sided neck pain and a sore throat. Patient states that she has been having left sided neck pain and a sore throat over the last few days. Patient states that she saw an ENT for something similar last year and they recommended not having her tonsils removed because it would be high risk. Patient denies any dizziness, lightheadedness, abdominal pain, nausea, vomiting, fever, chills, blurry vision, double vision, loss of vision, chest pain, difficulty breathing, shortness of breath, back pain, night sweats, pain with urination, increased urinary frequency, increased urinary urgency, blood in her urine or stool, syncope or a near syncopal episode, recent trauma or falls, bowel incontinence, bladder incontinence, or any other complaints at this time. Relieving factors: none Exacerbating factors: none Associated symptoms: denies other symptoms Treatments prior to arrival: none Related Data Previous Rx's ?Medication ?Instructions ?Recorded hydroxyzine HCl 25 mg tablet 25 mg PO BID PRN Anxiety 14 days 06/03/24 #28 tabs naproxen 500 mg tablet 500 mg PO BID 7 days #14 tabs 06/03/24 nicotine (polacrilex) 2 mg gum 4 mg buccal Q2H PRN Nicotine 06/03/24 Cravings 30 days #100 ea nicotine 21 mg/24 hr daily 21 mg transdermal DAILY nicotine 06/03/24 transdermal patch cravings 30 days #28 ea sertraline 25 mg tablet 25 mg PO DAILY 30 days #30 tabs 06/03/24 trazodone 50 mg tablet 50 mg PO BEDTIME PRN Insomnia 7 06/03/24 days #7 tabs clindamycin HCl 150 mg capsule 450 mg (3 x 150 mg) PO TID 10 days 07/29/24 (Cleocin HCl) #90 caps Allergies Allergy/AdvReac Type Severity Reaction Status Date / Time amoxicillin [AMOXICILLIN] Allergy Severe ANAPHYLAXIS, Verified 07/29/24 09:54 hives Penicillins [PENICILLINS] Allergy Severe ANAPHYLAXIS Verified 07/29/24 09:54 penicillin V Allergy Unknown hives Verified 07/29/24 09:54 Review of Systems Constitutional: Constitutional: Reports no additional constitutional complaints, Denies chills, Denies fever(s) and Denies night sweats Eyes: Eyes: Reports no additional eye complaints, Denies blurry vision, Denies change in vision, Denies diplopia, Denies eye discharge, Denies loss of vision and Denies eye pain ENT: Denies dizziness Comments: sore throat, left neck pain Cardiovascular: Cardiovascular: Reports no additional cardiovascular complaints, Denies chest pain, Denies lightheadedness, Denies Loss of Consciousness and Denies dyspnea Respiratory: Respiratory: Reports no additional respiratory complaints and Denies dyspnea Gastrointestinal: Gastrointestinal: Reports no additional gastrointestinal complaints, Denies abdominal pain, Denies melena, Denies hematochezia, Denies change in bowel habits and Denies change in stool character Genitourinary: Genitourinary: Denies hematuria, Denies urinary frequency, Denies dysuria, Denies urinary incontinence, Denies urinary hesitancy and Denies urinary urgency Musculoskeletal: Musculoskeletal: Reports no additional musculoskeletal complaints, Denies numbness and Denies tingling Neurologic: Denies dizziness, Denies loss of vision, Denies numbness and Denies tingling Psychiatric: Psychiatric: Reports no additional psychiatric complaints Endocrine: Endocrine: Reports no additional endocrine complaints Hematologic/Lymphatic: Hematologic/Lymphatic: Reports no additional hematologic/lymphatic complaints Allergic/Immunologic: Allergic/Immunologic: Reports no additional allergic/immunologic complaints PMFSH Past Medical History Attestation statement: The following information was validated with the patient. Source: old records reviewed and nursing notes reviewed Medical History Drug overdose Depression Suicidal ideation PTSD (post-traumatic stress disorder) Bipolar II disorder Asthma Social History Social History Household Members: Significant Other, Children and Other Household Members Other:: boyfriend and his daughter and my 17 year old son Housing: Apartment Do you presently have visiting nurse or other home services: No Alcohol intake: never Patient Tobacco Use Status: Current everyday Tobacco user Tobacco use type: Cigarette Cigarettes Per Day: 5 e-Cigarette/Vaping Use: Never Used Second Hand Smoke Exposure: Yes Substance Use Type: Marijuana Advance Directives: No service: Yes ([employer]) Sexual orientation: Straight/Heterosexual Physical Exam ED Vital Signs: Vital Signs - 24 hr 07/29/24 09:52 07/29/24 12:37 Temperature 98.1 F 98.1 F Pulse Rate 68 68 Respiratory Rate 16 16 Blood Pressure 129/90 H 129/90 H Pulse Oximetry 99 99 Oxygen Delivery Method Room Air Room Air BMI result Body Mass Index 24.6 Const General: cooperative, no acute distress, alert and awake Nutritional Appearance: well nourished Orientation/consciousness: patient oriented x3 Limitations: no limitations HENMT Head: Yes normal to inspection and Yes atraumatic Ears: hearing grossly normal bilaterally and external ears normal General nose exam: Normal external nose present, no nasal discharge noted and no epistaxis Face and sinus: Yes normal facial exam, No abrasion and No laceration Mouth: Normal oral and palatal mucosa present, no drooling and no muffled voice Throat: Yes abnormal tonsil (bilateral erythema, no exudates) Eyes General: appearance normal, both eyes and all related structures Periorbital: periorbital findings normal Eyelids: Yes eyelids normal Conjunctivae: conjunctivae normal Pupils: Equal, round and reactive pupils present EOM: EOMs intact bilaterally Neck Neck: Yes normal visual inspection, Yes full ROM and Yes no lymphadenopathy Chest Chest palpation & inspection: normal inspection of the chest Resp Effort & Inspection: normal respiratory effort and able to speak in complete sentences GI Inspection: Yes normal to inspection Neuro General: patient oriented x3 and moves all extremities Cranial nerves: Yes Equal, round and reactive pupils present Cognition (Neuro): normal cognition Extrem General: Yes normal to inspection, Yes full ROM and Yes capillary refill normal Psych Appearance: grossly normal Mental Status: mental status grossly normal Affect: normal affect Attitude: cooperative Thought process: Normal thought process present Thought content: Normal thought content present Insight: Good insight present (Psych) Medical Decision Making Medical Decision Making MDM Narrative: Patient is a 38 year old assigned female at with a history of bipolar disorder and PTSD presenting to the emergency department today with left neck pain and a sore throat. Patient's physical exam showed bilateral tonsilar edema but was otherwise unremarkable. Patient's COVID-19, influenza, RSV, and strep tests were negative. Given the patient's clinical presentation, will treat pharyngitis. I explained my physical exam findings as well as all test results to the patient. I answered all questions asked by the patient. I stressed the importance of the patient taking her medication as directed (either prescribed or as the over the counter packaging recommends). I stressed the importance of the patient following up with her primary care provider. I stressed the importance of the patient returning to the emergency department immediately if her symptoms were to worsen or if she were to develop any dizziness, shortness of breath, difficulty breathing, chest pain, blurry vision, loss of vision, nausea, vomiting, abdominal pain, fever, chills, back pain, or any other complaints. Patient verbalized agreement and understanding with this treatment plan and discharge. Differential Diagnosis Differential Diagnoses: The differential diagnosis associated with the presentation includes Pharyngitis COVID-19 Influenza RSV Strep pharyngitis Admission/Observation Consideration of admission/observation: Escalation of care including admission/observation considered Patient would have been admitted to the hospital had her work up had any findings where hospital admission was appropriate and her clinical presentation warranted hospital admission. Lab Data [facility] Lab Attestation statement: I reviewed the patient's lab results. My interpretation of these results are in the [facility] Rationale portion of this note. Labs: Lab Results 07/29/24 Range/Units 10:53 Influenza Type A (PCR) NEGATIVE (Negative) Influenza Type B (PCR) NEGATIVE (Negative) RSV RNA Qual (PCR) NEGATIVE (Negative) SARS-CoV-2 RNA (RT-PCR) NEGATIVE (Negative) S. pyogenes GrpA MARIZA Negative (Negative) Prescription Management I considered prescription management with: Antibiotic (patient's prescribed an antibiotic for pharyngitis) Discharge Plan Discharge Clinical Impression: Pharyngitis Patient Disposition: Home, Self-Care Instructions: Pharyngitis (ED) Additional Instructions: Follow up with your primary care provider. Return to the emergency department immediately if your symptoms worsen or if you develop any dizziness, shortness of breath, difficulty breathing, chest pain, blurry vision, loss of vision, nausea, vomiting, abdominal pain, fever, chills, back pain, or any other complaints. Prescriptions: New clindamycin HCl [Cleocin HCl] 150 mg capsule 450 mg PO TID 10 Days Qty: 90 0RF No Action sertraline 25 mg Tablet 25 mg PO DAILY 30 Days Qty: 30 0RF nicotine (polacrilex) 2 mg Gum 4 mg buccal Q2H PRN (Reason: Nicotine Cravings) 30 Days Qty: 100 0RF nicotine 21 mg/24 hr Patch 24 Hour 21 mg transdermal DAILY 30 Days Qty: 28 0RF hydroxyzine HCl 25 mg Tablet 25 mg PO BID PRN (Reason: Anxiety) 14 Days Qty: 28 1RF naproxen 500 mg Tablet 500 mg PO BID 7 Days Qty: 14 0RF trazodone 50 mg Tablet 50 mg PO BEDTIME PRN (Reason: Insomnia) 7 Days Qty: 7 1RF Referrals: [facility] [place] Family Medicine [Provider Group] (Call to establish and follow up with a primary care provider. If you already have a primary care provider, please follow up with them.) [facility] [place] Primary Care, [place] [Provider Group] (Call to establish and follow up with a primary care provider. If you already have a primary care provider, please follow up with them.) [facility] [place] Primary Care,[facility] [Provider Group] (Call to establish and follow up with a primary care provider. If you already have a primary care provider, please follow up with them.) [facility] [Physician] - (Call to establish and follow up with an ENT specialist. ) Stand Alone Forms: Work/School Release Interventions: ED Discharge Assessment Last Done: 07/29/24 12:37 Discharge Date/Time: 07/29/24 12:38 Print Language: Cymraes
[2024-07-29 11:40] LABS: Influenza A PCR NEGATIVE (Negative); Influenza B PCR NEGATIVE (Negative); Resp Syncy Virus RNA Qual PCR NEGATIVE (Negative); SARS COV2 PCR INHOUSE NEGATIVE (Negative)
[2024-07-29 12:37] VITALS: BP 129/90; PULSE 68; RESP 16; TEMP 36.7; O2SAT 99
== END 2024-07-29 12:38 | disposition home or self-care (01) ==
PROVIDERS: Emergency Provider Emergency Medicine
DX: J02.9 Acute pharyngitis, unspecified (principal); F17.210 Nicotine dependence, cigarettes, uncomplicated; Z03.818 Encounter for observation for suspected exposure to other biological agents ruled out; Z79.899 Other long term (current) drug therapy
CPT/HCPCS: 0241U; 87651; 99282; 99283